=== PATIENT | female | born 1965 | race Two or more races ===

== ENCOUNTER → 2022-06-16 | Emergency (ER) | payer OTHER ==
[~2022-06-16] VITALS: Ht 165.1 cm; Wt 63.0 kg
[~2022-06-16] MED LIST: SEGLUROMET 2.51 EAC1 PO; VALTREX1000 MG PO
== END | disposition home or self-care (01) ==
LOC: ER 08:44
DX: B02.9 Zoster without complications (principal); E11.9 Type 2 diabetes mellitus without complications